=== PATIENT | female | born 1985 | race Caucasian/White ===

== ENCOUNTER 2017-03-01 23:58 | Emergency (ER) | payer OTHER ==
[~2017-03-01] VITALS: Ht 162.6 cm; Wt 86.2 kg
[2017-03-02 00:12] VITALS: Ht 162.6 cm; Wt 86.2 kg
[2017-03-02 02:01] LABS: CALCIUM 8.3 mg/dL (8.5-10.1); CARBON DIOXIDE 27.1 mmol/L (21-32); CHLORIDE SERUM 108 mmol/L (98-107); CREATININE SERUM 0.7 mg/dL (0.6-1.0); GFR1 > 60 mL/min; GLUCOSE SERUM 124 mg/dL (74-106); SODIUM SERUM 144 mmol/L (136-145)
[2017-03-02 02:05] LABS: ALBUMIN 3.5 g/dL (3.4-5.0); ALKALINE PHOSPHATASE 77 U/L (46-116); ALT/SGPT 18 U/L (14-59); AST/SGOT 26 U/L (15-37); BILIRUBIN TOTAL 0.14 mg/dL (0.20-1.00); TOTAL PROTEIN, SERUM 7.9 g/dL (6.4-8.2)
[2017-03-02 03:16] VITALS: BP 100/86
== END 2017-03-02 03:16 | disposition home or self-care (01) ==
LOC: ED 23:58
PROVIDERS: Emergency Medicine
DX: F10.129 Alcohol abuse with intoxication, unspecified (principal); R55 Syncope and collapse; F32.9 Major depressive disorder, single episode, unspecified
CPT/HCPCS: 36415; G0480; Q0162

== ENCOUNTER 2018-07-20 03:58 | Emergency (ER) | payer MEDICAID ==
[~2018-07-20] VITALS: Ht 160 cm; Wt 88.9 kg
[2018-07-20 04:02] VITALS: Ht 160 cm; Wt 88.9 kg
[2018-07-20 04:32] LABS: PLATELET COUNT 249 x10^3mcL (130-400)
[2018-07-20 04:38] LABS: RED CELL DISTRIBUTION WIDTH 15.2 % (11.5-14.5)
[2018-07-20 04:45] LABS: microscopic required? YES; urine erythrocyte TRACE (NEGATIVE)
[2018-07-20 05:39] VITALS: BP 117/64
== END 2018-07-20 05:39 | disposition home or self-care (01) ==
LOC: ED 03:58
PROVIDERS: Emergency Medicine
DX: O20.0 Threatened abortion (principal); O23.41 Unspecified infection of urinary tract in pregnancy, first trimester; Z98.890 Other specified postprocedural states; Z3A.11 11 weeks gestation of pregnancy
CPT/HCPCS: 36415

== ENCOUNTER 2019-09-28 20:45 | Emergency (ER) | payer OTHER, SELFPAY ==
[~2019-09-28] VITALS: Ht 160 cm; Wt 77.1 kg
[2019-09-28 20:54] VITALS: Ht 160 cm; Wt 77.1 kg
[2019-09-28 21:50] VITALS: BP 108/68
== END 2019-09-28 21:50 | disposition home or self-care (01) ==
LOC: ED 20:45
DX: U07.1 COVID-19 (principal)
CPT/HCPCS: U0003-CS